=== PATIENT | male | born 1980 | race Caucasian/White ===

== ENCOUNTER 2023-12-06 07:07 | Emergency (ER) | payer MEDICAID ==
[~2023-12-06] VITALS: Ht 172.7 cm; Wt 61.0 kg
[2023-12-06 07:12] VITALS: TEMP 98.1; O2SAT 100
[2023-12-06] MEDS: CYCLOBENZAPRINE 10MG TABLET PO ONE (09:08)
[2023-12-06] MEDS: KETOROLAC 30MG/ML VIAL IM ONE (09:08)
[2023-12-06] MEDS ORDERED: CYCL10TA21 MT (09:21)
[2023-12-06 09:37] VITALS: BP 175/99; PULSE 137; RESP 12
== END 2023-12-06 09:43 | disposition home or self-care (01) ==
LOC: ER 07:07
DX: M79.605 Pain in left leg (principal); I10 Essential (primary) hypertension; Z88.0 Allergy status to penicillin
CPT/HCPCS: 99283; 96372; J1885